=== PATIENT | female | born 1955 | race Two or more races ===

== ENCOUNTER 2024-07-28 11:51 | Outpatient (CLI) | payer MEDICARE, SELFPAY ==
[2024-07-28 11:54] LABS: Adenovirus F 40/41, stool Not Detected (NotDetected); Astrovirus Not Detected (NotDetected); Campylobacter Not Detected (NotDetected); Clostridium Difficile A/B, PCR Not Detected (NotDetected); Cryptosporidium Not Detected (NotDetected); Cyclospora Cayetanesis Not Detected (NotDetected); Entamoeba histolytica Not Detected (NotDetected); Enteroaggregative E coli Not Detected (NotDetected); Enteropathogenic E coli Not Detected (NotDetected); Enterotoxigenic E coli Not Detected (NotDetected); Giardia lamblia Not Detected (NotDetected); Norovirus Not Detected (NotDetected); Plesimonas Shigalloides, PCR Not Detected (NotDetected); Rotavirus A Not Detected (NotDetected); Salmonella, PCR Not Detected (NotDetected); Sapovirus Not Detected (NotDetected); Shiga-like toxin E coli Not Detected (NotDetected); Shigella Enterovasive E coli Not Detected (NotDetected); Vibrio Cholerae Not Detected (NotDetected); Vibrio, PCR Not Detected (NotDetected); Yersinia Entercolitica, PCR Not Detected (NotDetected)
[2024-08-01 01:35] LABS: Pancreatic Elastase, Fecal >800 (>200)
== END 2024-07-28 23:59 | disposition home or self-care (01) ==
LOC: LAB 11:51
PROVIDERS: PCP Internal Medicine; Visit Provider Nurse Practitioner Family
DX: R19.7 Diarrhea, unspecified (principal)
CPT/HCPCS: 82656; 87506

== ENCOUNTER 2024-09-19 12:07 | Day surgery (SDC) | payer MEDICARE, SELFPAY ==
[2024-09-19 12:31] VITALS: BP 133/107; PULSE 95; RESP 17; O2SAT 100
[2024-09-19 12:42] VITALS: BMI 27.6
[2024-09-19] MEDS: LACTATED RINGERS 1000ML 1,000 ML 50 ML IV (12:44)
[2024-09-19 13:10] VITALS: O2SAT 98
--- NOTE | 2024-09-19 13:27 | P.HP_ITS ---
History of Present Illness *Admission Date: 09/19/24 *Reason for visit:: Diarrhea/urgency/gassiness and bloating *History of present illness: Mrs. Villagomez is a 68-year-old female who is here for diagnostic colonoscopy secondary to intractable urgency and diarrhea with gas, bloating and abdominal discomfort. The examination is deemed medically necessary for diagnostic colonoscopy. The patient has been seen, interviewed and examined prior to the procedure by both myself and the anesthesia provider. [facility] Disclaimer: The information contained in this section may have been updated after the patient was seen, as this information can be updated by other users. Medical History Panic attacks Internal hemorrhoids Hypertension Hernan deformity Gastroparesis Diverticulosis Depression COPD (chronic obstructive pulmonary disease) Back pain Surgical History History of carpal tunnel surgery History of partial hysterectomy History of knee replacement Family History Grandfather Colon cancer Mother Melanoma Social History (Updated 09/19/24 @ 12:32 by Kayla Gama RN) Smoking Status: Current every day smoker alcohol intake: current alcohol intake frequency: holidays/special occasions only substance use type: denies use current occupational status: retired Travel in the last 8 weeks: None Have you lived/traveled outside [place] in past 30 days?: No Contact w/someone who lives/traveled outside US past 30 days?: No Exposure to someone with infectious disease in past 14 days?: No Do you have a fever (greater than 100.4 F or 38 C)?: No Have you tested positive for COVID-19: No Exposed to someone with COVID-19 in past 14 days?: No Do you have a sore throat?: No Do you have a cough?: No Do you have any weakness?: No Do you have any diarrhea?: No Are you experiencing any unusual bleeding?: No Do you have any muscle aches/pain?: No Do you have any abdominal pain?: No Are you experiencing loss of taste or smell?: No Other Medical History Have you received the Pneumonia Vaccine: Yes Review of Systems Review of Systems Review of systems (narrative): Negative *Cardiovascular Comments: Negative *Gastrointestinal Comments: Negative *Genitourinary Comments: Negative *Musculoskeletal Comments: Negative *Neurologic Comments: Negative Meds Home Medications and Allergies Home Medications ?Medication ?Instructions ?Recorded ?Confirmed ?Type amlodipine 5 mg tablet 5 mg PO DAILY 07/15/24 09/19/24 History aspirin 81 mg tablet,delayed 81 mg PO DAILY 07/15/24 09/19/24 History release (Adult Low Dose Aspirin) isosorbide mononitrate 30 mg 30 mg PO DAILY 07/15/24 09/19/24 History tablet,extended release 24 hr promethazine 25 mg tablet 25 mg PO Q6H PRN Nausea 07/15/24 09/19/24 History propranolol 80 mg capsule,24 80 mg PO DAILY 07/15/24 09/19/24 History hr,extended release prucalopride 2 mg tablet 2 mg PO DAILY 07/15/24 09/19/24 History (Motegrity) sacrosidase 8,500 unit/mL oral 2 ml PO 6XD 07/15/24 09/19/24 History solution (Sucraid) valsartan 320 mg tablet 320 mg PO DAILY 07/15/24 09/19/24 History alprazolam 1 mg tablet 1 mg PO TID 07/27/24 09/19/24 History buspirone 10 mg tablet 10 mg PO QID 07/27/24 09/19/24 History colestipol 1 gram tablet 1 g PO TID 07/27/24 09/19/24 History diphenoxylate-atropine 2.5 1 tab PO DAILY 07/27/24 09/19/24 History mg-0.025 mg tablet duloxetine 60 mg capsule,delayed 60 mg PO BID 07/27/24 09/19/24 History release ibuprofen 800 mg tablet 800 mg PO TID 07/27/24 09/19/24 History inulin 2 gram chewable tablet 6 g PO TID 07/27/24 09/19/24 History melatonin 10 mg capsule 10 mg PO QID 07/27/24 09/19/24 History pantoprazole 40 mg tablet,delayed 40 mg PO BID 07/27/24 09/19/24 History release pyridostigmine bromide 60 mg tablet 60 mg PO QID 07/27/24 09/19/24 History rosuvastatin 40 mg tablet 40 mg PO DAILY 07/27/24 09/19/24 History simethicone 250 mg capsule (Gas 250 mg PO BID PRN abdominal 07/27/24 09/19/24 Rx Relief (simethicone)) distention #180 caps sodium,potassium,mag sulfates 17.5 See Rx Instructions PO .COMPLEX 08/15/24 09/19/24 Rx gram-3.13 gram-1.6 gram oral soln #354 mL (Suprep Bowel Prep Kit) New Prescriptions to Start Prescriptions: Allergies Allergy/AdvReac Type Severity Reaction Status Date / Time No Known Allergies Allergy Verified 09/19/24 12:23 Exam Data for Last 24 hours Vital signs and Labs for Last 24 Hours: Pulse Resp BP Pulse Ox O2 Del Method O2 Flow Rate 95 H 17 133/107 H 100 Nasal Cannula 5 09/19/24 12:31 09/19/24 12:31 09/19/24 12:31 09/19/24 12:31 09/19/24 13:10 09/19/24 13:10 I & O for Last 24 hours: Intake & Output 09/16/24 09/17/24 09/18/24 09/19/24 23:59 23:59 23:59 23:59 Weight 166 lb *Routine HEENT Exam Head: Present normocephalic Eye: Present EOMI and PERRL ENT: Present mucous membranes moist *Routine Neck Exam Neck: Present supple *Routine Respiratory Exam Respiratory: Present CTA bilaterally *Routine Cardiovascular Exam Cardiovascular: Present RRR *Routine Abdominal Exam Abdominal: Present soft and normoactive bowel sounds; Absent tenderness *Routine Rectal Exam Rectal:: deferred *Routine Genitalia Exam Genitalia:: deferred *Routine Extremities Exam Extremities: Absent cyanosis, clubbing or edema *Routine Skin Exam Skin: Present warm; Absent rash *Routine Neurological Exam Neurological: Present alert and oriented X3 Assessment and Plan *Assessment and plan (1) Diarrhea: Status: Acute Category: Medical Code(s): R19.7 - Diarrhea, unspecified (2) Fecal urgency: Status: Acute Category: Medical Code(s): R15.2 - Fecal urgency (3) Bloating: Status: Acute Category: Medical Code(s): R14.0 - Abdominal distension (gaseous) (4) Change in bowel habits: Status: Acute Category: Medical Code(s): R19.4 - Change in bowel habit (5) Anal stenosis: Status: Acute Category: Medical Code(s): K62.4 - Stenosis of anus and rectum (6) Sucrase-isomaltase deficiency: Status: Acute Category: Medical Code(s): E74.31 - Sucrase-isomaltase deficiency Plan A/P: 1. Change in bowel habits with bowel urgency/frequency/diarrhea and up to 10-12 bowel movements daily is the preprocedural diagnosis. She also has a lot of gassiness, bloating and abdominal discomfort the patient will be anesthetized/sedated using MAC sedation. The patient has been seen and examined. Cardiac and lung assessment prior to the examination is stable. Proceed with planned colonoscopy
--- NOTE | 2024-09-19 13:36 | P.PCN_ITS ---
[facility] Procedure Note Date: 09/19/24 Time: 13:51 Procedure Note:: Colonoscopy Procedure Report: Colonoscopy with cold biopsies Endoscopist: Abdias Casanova II, MD Referring physician: Geovani Dong MD, [address] [place] [address] Date of Procedure: September 19, 2024 Equipment: Olympus 190 variable stiffness pediatric colonoscope Sedation: MAC sedation Indication: Mrs. Villagomez is a 68-year-old female who is here for diagnostic colonoscopy secondary to a change in bowel habits. She did have a prior history of severe constipation and bloating. She also had poor bladder emptying. 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 She was referred to Dr. Hussein Molina (colorectal surgery) and had anal stenosis with chronic tenesmus. She did undergo anoplasty and ulcerectomy. She was placed on pyridostigmine. After the surgery she began having up to 20 bowel movements daily with urgency. She has soft/loose stools. Now she has 10-12 bowel movements daily and is taking cholestyramine which has helped some. She feels as if the pruritus thickening helped her passing gas. She does have moderate gassiness and bloating. She has bowel/greenish colored stools. Her pancreatic fecal elastase was normal. She reports no rectal bleeding or weight loss. She does get lower abdominal discomfort. The patient's grandfather had colon cancer. Procedure: Prior to the procedure, a history and physical exam was performed, and patient's medications and allergies were reviewed. The risks, benefits and alternatives of the sedation and procedure were discussed with the patient. All questions were answered and informed consent was obtained. The patient was brought to the procedure room. Patient identification and proposed procedure were verified by the physician and the nurse. The patient was placed in a left lateral decubitus position and the scope was passed under direct vision. Throughout the procedure, the patient's blood pressure, pulse, and oxygen saturations were monitored continuously. The colonoscopy was accomplished without difficulty. The patient tolerated the procedure well. Findings: On digital rectal examination there was normal rectal tone. There were no external hemorrhoids. The colonoscope was introduced through the anal canal to the rectum and advanced to the cecum. The ileocecal valve and appendiceal orifice were identified. The scope was advanced a short distance into the ileum which appeared grossly normal. The scope was then withdrawn into the colon. The cecum, ascending and transverse colon and mucosa were grossly normal. Cold biopsies were taken from the right colon to rule out microscopic colitis. There were scattered diverticuli throughout the descending and sigmoid colon (LEFT colon). The rectum itself was normal. Upon retroflexion within the rectum there were grade 1-2 internal hemorrhoids. The preparation was excellent throughout with [place] Preparation Score of 9. The cecal time was 10 minutes. Impression: 1. Left-sided diverticulosis 2. Grade 1-2 internal hemorrhoids Plan: I will follow-up the biopsies to rule out microscopic colitis. I am going to resume the pruritus thickening which was helpful. I would also increase the colestipol to 2 to 4 g p.o. twice daily. I would continue digestive enzyme replacement with Sucraid. We will discuss additional treatment options.
[2024-09-19 13:52] VITALS: BP 113/69; PULSE 99; RESP 16; TEMP 36.7; O2SAT 90
[2024-09-19 14:02] VITALS: BP 109/79; PULSE 98; RESP 16; O2SAT 94
--- NOTE | 2024-09-19 14:03 | P.PNANES_ITS ---
[facility] Disclaimer: The information contained in this section may have been updated after the patient was seen, as this information can be updated by other users. Medical History Panic attacks Internal hemorrhoids Hypertension Hernan deformity Gastroparesis Diverticulosis Depression COPD (chronic obstructive pulmonary disease) Back pain Surgical History History of carpal tunnel surgery History of partial hysterectomy History of knee replacement Family History Grandfather Colon cancer Mother Melanoma Social History (Updated 09/19/24 @ 12:32 by Kayla Gama RN) Smoking Status: Current every day smoker alcohol intake: current alcohol intake frequency: holidays/special occasions only substance use type: denies use current occupational status: retired Travel in the last 8 weeks: None Have you lived/traveled outside [place] in past 30 days?: No Contact w/someone who lives/traveled outside [place] past 30 days?: No Exposure to someone with infectious disease in past 14 days?: No Do you have a fever (greater than 100.4 F or 38 C)?: No Have you tested positive for COVID-19: No Exposed to someone with COVID-19 in past 14 days?: No Do you have a sore throat?: No Do you have a cough?: No Do you have any weakness?: No Do you have any diarrhea?: No Are you experiencing any unusual bleeding?: No Do you have any muscle aches/pain?: No Do you have any abdominal pain?: No Are you experiencing loss of taste or smell?: No [facility] Anesthesia Checklist Patient Identification Patient Identification: Verbal (Name & ) Structural Data Admitted From: Home Planned Operative Procedure/s: colonoscopy Consent for Planned Operative Procedure(s) Verified: Yes NPO Status Verified Time NPO: 00:00 Additional verifications Anesthesia Reactions: No Hx Blood Transfusions: No Blood Transfusion Reaction: No Airway Assessment Mallampati Score:: Class II C-Spine Mobility Assessed: Yes TMJ Mobility Assessed: Yes Dentition: Poor Dentition Neurological Assessment Level of Consciousness: Awake, Alert and Appropriate Anesthesia Plan Anesthesia Risk discussed: Yes Anesthesia Plan: Verified ASA Class: III Anesthesia Type: MAC
[2024-09-19 14:12] VITALS: BP 115/80; PULSE 86; RESP 16; O2SAT 94
[2024-09-19 14:22] VITALS: BP 127/78; PULSE 78; RESP 16; O2SAT 96
== END 2024-09-19 14:27 | disposition home or self-care (01) ==
PROVIDERS: Visit Provider Internal Medicine Gastroenterology
PROC: 0DJD8ZZ Inspection of Lower Intestinal Tract, Via Natural or Artificial Opening Endoscopic (ICD-10-PCS; CPT 45378; principal; 2024-09-19 15:00)
DX: K57.30 Diverticulosis of large intestine without perforation or abscess without bleeding (principal); K64.8 Other hemorrhoids; R19.7 Diarrhea, unspecified; R15.2 Fecal urgency; R14.0 Abdominal distension (gaseous); R19.4 Change in bowel habit; K62.4 Stenosis of anus and rectum; E74.31 Sucrase-isomaltase deficiency; Z80.0 Family history of malignant neoplasm of digestive organs
CPT/HCPCS: 45380; J7120